=== PATIENT | male | born 1995 | race African-American/Black ===

== ENCOUNTER 2017-11-26 16:42 | Emergency (ER) | payer BC ==
--- NOTE | 2017-11-26 17:21 | PDOC ---
Rapid Medical Evaluation Time Seen by Provider: 11/26/17 17:18 Medical Evaluation: Allergies Allergy/AdvReac Type Severity Reaction Status Date / Time No Known Allergies Allergy Verified 08/08/15 12:12 11/26/17 17:19 I have performed a brief in-person evaluation of this patient. The patient presents with a chief complaint of: headache and fever x 4 days. States pain on top of head and to the left side. Took ibuprofen 1 tab this am Denies nausea, blurred vision dizziness. Pertinent physical exam findings are: NAD HEENT: PERRLA neuro: no photophobia, moving all limbs, full strength in all 4 I have ordered the following: analgesia The patient will proceed to the ED for further evaluation.
[2017-11-26 17:25] VITALS: BMI 42.5
[2017-11-26] MEDS ORDERED: ACETAMINOPHEN 325 MG TABLET (FP) PO ONE (17:26)
[2017-11-26] MEDS ORDERED: ACETAMINOPHEN 325 MG TABLET (FP) ONE (17:52)
--- NOTE | 2017-11-26 18:10 | PDOC ---
History of Present Illness - General Chief Complaint: Headache Stated Complaint: HEADACHES Time Seen by Provider: 11/26/17 17:18 - History of Present Illness Initial Comments: 22 year old male with history of headaches presenting with headache for the past 2.5 days refractory to oral medications. States that he has had a bilateral band like headache that occasionally goes to to his left temporal region. His headaches typically resolve with ibuprofen but this has been slightly more intense without resolution. Denies any temporal relation, or worse when bending over. He does admit to some slight pain when moving his eyes to the left where he feels the headache in the temporal region of his head. Denies nausea, vomiting, diarrhea, constipation, or other symptoms. 11/26/17 18:25 Past History - Past Medical History Allergies/Adverse Reactions: Allergies Allergy/AdvReac Type Severity Reaction Status Date / Time No Known Allergies Allergy Verified 11/26/17 17:21 Home Medications: Ambulatory Orders NK [No Known Home Medication] 08/08/15 COPD: No - Suicide/Smoking/Psychosocial Hx Smoking History: Never smoked Hx Alcohol Use: No Drug/Substance Use Hx: No Review of Systems - Review of Systems Constitutional: No: Chills, Diaphoresis, Fever HEENTM: No: Blurred Vision, Tearing Respiratory: No: Cough, Orthopnea, Shortness of Breath Cardiac (ROS): No: Chest Pain, Edema, Lightheadedness ABD/GI: No: Diarrhea, Nausea, Poor Appetite : No: Burning, Dysuria, Discharge Musculoskeletal: No: Back Pain, Gout Integumentary: No: Bruising, Lesions, Lumps Neurological: Yes: Headache. No: Numbness, Paresthesia, Unsteady Gait, Ataxia, Dizziness Psychiatric: No: Depression Hematologic/Lymphatic: No: Blood Clots, Easy Bleeding *Physical Exam - Vital Signs Last Vital Signs Temp Pulse Resp BP Pulse Ox 99.3 F 96 H 16 166/99 99 11/26/17 17:21 11/26/17 17:21 11/26/17 17:21 11/26/17 17:21 11/26/17 17:21 - Physical Exam General Appearance: Yes: Nourished, Appropriately Dressed. No: Apparent Distress HEENT: positive: EOMI, QUAN, Normal ENT Inspection, Normal Voice Neck: positive: Trachea midline, Normal Thyroid, Supple. negative: Tender, Rigid Respiratory/Chest: positive: Lungs Clear, Normal Breath Sounds. negative: Chest Tender, Respiratory Distress, Accessory Muscle Use Cardiovascular: positive: Regular Rhythm, Regular Rate Gastrointestinal/Abdominal: positive: Normal Bowel Sounds, Flat, Soft. negative : Tender Musculoskeletal: positive: Normal Inspection. negative: Decreased Range of Motion, Muscle Spasm Extremity: positive: Normal Capillary Refill, Normal Inspection, Normal Range of Motion. 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 Patient would like to go home. This is likely an acute exacerbation of his typical headaches and not concerning for any ICH or ICM as his neuro exam is intact and there are no other concerning issues. 11/26/17 20:07 *DC/Admit/Observation/Transfer Diagnosis at time of Disposition: Headache Qualifiers: Headache type: unspecified Headache chronicity pattern: acute headache Intractability: not intractable Qualified Code(s): R51 - Headache - Discharge Dispostion Disposition: HOME Condition at time of disposition: Improved Decision to Admit order: No - Referrals Referrals: [facility] [place] [Provider Group] Benny West MD [Staff Physician] - - Patient Instructions Printed Discharge Instructions: DI for Headache Additional Instructions: Please drink plenty of water and please use Motrin for the pain at home along with Tylenol. Please follow up with the neurologist for better control of your headacehs as you seem to get them quite frequently. Please return to the ED if you have new or worsening symptoms. - Post Discharge Activity Forms/Work/School Notes: Back to Work
[2017-11-26] MEDS ORDERED: KETOROLAC TROMETHAMINE 30 MG/1 ML VIAL IM ONE (18:18)
[2017-11-26] MEDS ORDERED: METOCLOPRAMIDE HCL 10 MG TABLET (FP) PO ONE ×2 (18:18→18:25)
[2017-11-26] MEDS ORDERED: KETOROLAC TROMETHAMINE 30 MG/1 ML VIAL ONE (18:25)
--- NOTE | 2017-11-26 20:17 | PDOC ---
Attending Attestation - Resident Resident Name: Jackie Bustillo - ED Attending Attestation I have performed the following: I have examined & evaluated the patient, The case was reviewed & discussed with the resident, I agree w/resident's findings & plan - HPI HPI: 11/26/17 20:17 22 year old male with history of headaches presenting with headache x 2-3 days. no photophobia, vomiting, visual or hearing disturbances. has been taking nsaids with some relief. denies prodrome or syncope. - did admit to caffeine intake over the weekend. denies fever or chills. no uri or GI sx 11/26/17 20:23 - Physicial Exam PE: 11/26/17 20:18 NAD, well appearing, MMM, nl conjunctiva, anicteric; neck supple. lungs clear, RRR, abdomen soft nontender. RUSSELL x4, No peripheral edema. normal color for ethnicity, WWP. Alert, oriented to person time and place. CN II-XII grossly intact. Strength prox and distally 5/5 throughout. Sensation grossly intact to light touch. RUSSELL x4. No cerebellar signs, no dysmetria, bilateral finger to nose and heel to smith equal and symmetric. Speech clear. gait stable, no ataxia - Medical Decision Making 11/26/17 20:19 22-year-old male with history of headaches presenting with frontal headache 2- 3 days, no neurologic changes. Note prodrome, syncope, fevers or chills or neck pain. Vital signs stable, well-appearing. most likely migraine vs tension vs caffeine headache Given Toradol, reglan and tylenol with symptomatically relief. No focal neurologic findings or abnormalities. 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 Discharged in stable condition, primary doctor follow-up. Recheck blood pressure as an outpatient, discussed return precautions including worsening weakness, paresthesias, syncope, gait instability, visual or hearing changes. Headache modifying factors discussed, dietary changes, headache diary and [id number]-[id number] medication use discussed including proper dosing of NSAIDs and/or Tylenol every 6 hours as needed. Minimize potential triggers and stress. Patient verbalized understanding of impression and plan, agreeable. gait stable, ambulatory. 11/26/17 20:24
[2017-11-26 20:19] VITALS: BP 122/69; PULSE 79; TEMP 98.2
== END 2017-11-26 20:20 | disposition home or self-care (01) ==
LOC: JER 16:42
PROC: 3E0233Z Introduction of Anti-inflammatory into Muscle, Percutaneous Approach (ICD-10-PCS; principal; 2017-11-26)
DX: R51 Headache (principal)
CPT/HCPCS: 99282-25

== ENCOUNTER 2018-12-09 07:50 | Emergency (ER) | payer BC ==
[2018-12-09 07:58] VITALS: BP 141/77; PULSE 85; TEMP 98.2; BMI 52.1
--- NOTE | 2018-12-09 08:05 | PDOC ---
History of Present Illness - General Chief Complaint: Palpitations Stated Complaint: CHEST DISCOMFORT Time Seen by Provider: 12/09/18 08:04 History Source: Patient Exam Limitations: No Limitations - History of Present Illness Initial Comments: 23 year old male with no PMH presented to ED for palpitations since yesterday. Pt reported intermittently feeling a deep pressure with heartbeat, that will rapidly resolve, it improved in frequency this morning, but was still occurring , prompting pt to come to ED. Pt denied chest pain, shortness of breath, sore throat, runny nose, cough, headache, fever, lower extremity swelling, hormone use, hx DVT/PE, hx surgery <4 weeks, hx active malignancy. Pt reported he has not seen a PCP in >3 years. Past History - Past Medical History Allergies/Adverse Reactions: Allergies Allergy/AdvReac Type Severity Reaction Status Date / Time No Known Allergies Allergy Verified 12/09/18 07:53 Home Medications: Ambulatory Orders NK [No Known Home Medication] 08/08/15 COPD: No - Psycho Social/Smoking Cessation Hx Smoking History: Never smoked Have you smoked in the past 12 months: No Hx Alcohol Use: No Drug/Substance Use Hx: No *Physical Exam - Vital Signs Last Vital Signs Temp Pulse Resp BP Pulse Ox 98.2 F 85 18 141/77 98 12/09/18 07:53 12/09/18 07:53 12/09/18 07:53 12/09/18 07:53 12/09/18 07:53 - Physical Exam Comments: ROS General: denied fever, chills, generalized weakness. HEENT: denied sore throat, rhinorrhea, ear pain. Cardiovascular: admitted to palpitations. denied chest pain, syncope, diaphoresis. Respiratory: denied shortness of breath, cough, sputum production, hemoptysis. Gastrointestinal: denied abdominal pain, nausea, vomiting, diarrhea, constipation, blood in stool. Genitourinary: denied dysuria, increased urinary frequency, hematuria, urinary incontinence, flank pain. Back: denied back pain. Musculoskeletal: denied joint pain, muscle pain, joint swelling. Neurological: denied headache, dizziness, numbness, tingling, weakness. Integumentary: denied rash, laceration, abrasion. Hematologic/Lymphatic: denied bruising or bleeding. PE Constitutional: Well-nourished, Well-developed, appearing stated age. obese. HEENT: head is normocephalic, atraumatic. EOMI. PERRLA. Neck: supple. Full ROM. Cardiovascular: regular heart rhythm. no murmurs. no pericardial friction rub. Respiratory: clear to auscultation bilaterally. no crackles, rhonchi or wheezing. no stridor. Gastrointestinal: soft, nontender. normal bowel sounds. no rebound, guarding, masses. Extremities: peripheral pulses intact. no lower extremity edema. Neurological: CN 2-12 grossly intact. moves all four extremities. Psych: awake, alert, oriented x3. follows commands. answers questions appropriately. ED Treatment Course - LABORATORY CBC & Chemistry Diagram: 12/09/18 08:28 12/09/18 08:28 Medical Decision Making - Medical Decision Making 23 year old male with no PMH presented to ED for palpitations. Initial Vital Signs Temp Pulse Resp BP Pulse Ox 98.2 F 85 18 141/77 98 12/09/18 07:53 12/09/18 07:53 12/09/18 07:53 12/09/18 07:53 12/09/18 07:53 Afebrile. No tachycardia. No tachypnea. Mild hypertension. No hypoxia on room air. Labs ordered: CBC, CMP, troponin, TSH, Mag, Phos Imaging ordered: CXR Medications ordered: normal saline bolus 1000 cc once EKG performed at 0752: rate 71, regular rhythm, normal axis, normal intervals, no acute ST changes. -Flipped T in III/V2 seen on prior EKG 08/07/18 not seen 12/09/18 08:47 CXR report: Name: [facility] Phys: Ban Perry RESIDENT : 1995 Age: 23 Sex: M [facility] Acct: [id number] Loc: [address] Exam Date: 12/09/18 Status: REG [facility] [place] [id number] Unit Number: [id number] EXAM#: TYPE/EXAM: RESULT: [id number] RAD/CHEST PA LAT Chest tightness palpitations. Chest 2 views. Comparison study August 08, 2015. Shallow inspiration. No evidence of widening of the superior mediastinum. Prominent cardiac silhouette. Elevated right diaphragm. No evidence of vascular congestive changes, pulmonary infiltrates. No pneumothorax, or large pleural effusion is seen. No evidence of bulky hilar adenopathy. The visualized osseous structures appear intact. Impression. Shallow inspiration. No evidence of active pulmonary disease, pleural effusion, or pneumothorax. Prominent cardiac silhouette. Reported By: Sandro Henry MD 12/09/18 0844 12/09/18 09:23 CBC WBC 6.9 K/mm3 (4.0-10.0) 12/09/18 08:28 RBC 4.53 M/mm3 (4.00-5.60) 12/09/18 08:28 Hgb 13.2 GM/dL (11.7-16.9) 12/09/18 08:28 Hct 38.9 % (35.4-49) 12/09/18 08:28 MCV 85.8 fl (80-96) 12/09/18 08:28 MCH 29.1 pg (25.7-33.7) 12/09/18 08: MCHC 33.9 g/dl (32.0-35.9) 12/09/18 08:28 RDW 13.5 % (11.9-15.9) 12/09/18 08:28 Plt Count 249 K/MM3 (134-434) 12/09/18 08:28 MPV 9.1 fl (7.5-11.1) 12/09/18 08:28 Absolute Neuts (auto) 3.7 K/mm3 (1.5-8.0) 12/09/18 08:28 Neutrophils % 53.5 % (42.8-82.8) 12/09/18 08:28 Lymphocytes % 34.1 % (8-40) 12/09/18 08:28 Monocytes % 8.2 % (3.8-10.2) 12/09/18 08:28 Eosinophils % 3.7 % (0-4.5) 12/09/18 08:28 Basophils % 0.5 % (0-2.0) 12/09/18 08:28 Nucleated RBC % 0 % (0-0) 12/09/18 08:28 CMP Sodium 140 mmol/L (136-145) 12/09/18 08:28 Potassium 4.5 mmol/L (3.5-5.1) 12/09/18 08:28 Chloride 104 mmol/L (98-107) 12/09/18 08:28 Carbon Dioxide 32 mmol/L (21-32) 12/09/18 08:28 Anion Gap 4 MMOL/L (8-16) L 12/09/18 08:28 BUN 9.9 mg/dL (7-18) 12/09/18 08:28 Creatinine 0.7 mg/dL (0.55-1.3) 12/09/18 08:28 Est GFR (CKD-EPI)AfAm 152.02 12/09/18 08:28 Est GFR (CKD-EPI)NonAf 131.16 12/09/18 08:28 Random Glucose 101 mg/dL (74-106) 12/09/18 08:28 Calcium 9.1 mg/dL (8.5-10.1) 12/09/18 08:28 Phosphorus 3.2 mg/dL (2.5-4.9) 12/09/18 08:28 Magnesium 2.2 mg/dL (1.8-2.4) 12/09/18 08:28 Total Bilirubin 0.4 mg/dL (0.2-1) 12/09/18 08:28 AST 13 U/L (15-37) L 12/09/18 08:28 ALT 21 U/L (13-61) 12/09/18 08:28 Alkaline Phosphatase 85 U/L (45-117) 12/09/18 08:28 Troponin I < 0.02 ng/ml (0.00-0.05) 12/09/18 08:28 Total Protein 7.4 g/dl (6.4-8.2) 12/09/18 08:28 Albumin 3.6 g/dl (3.4-5.0) 12/09/18 08:28 TSH 1.05 uIU/ml (0.358-3.74) 12/09/18 08:28 No anemia. No electrolyte abnormalities. No ADAM. No transaminitis. Troponin undetectable. TSH wnl. Pt reassessed, reported no recurrence of palpitations while in ED. Pt eating food tray without difficulty. Ambulating well without assistance. Pt discharged. [facility] Discharge - Discharge Information Problems reviewed: Yes Clinical Impression/Diagnosis: Palpitations Condition: Stable Disposition: HOME - Admission No - Follow up/Referral Referrals: [facility] [place] [Provider Group] - Patient Discharge Instructions Patient Printed Discharge Instructions: DI for Palpitations Additional Instructions: Follow up with a primary care doctor within 3 days. Your care is not complete until you follow up. I have provided you with a referral to our clinic system, which takes all or no health insurance. Call [phone] to make an appointment. Return to the Emergency Department for chest pain, shortness of breath, vomiting , fever, lightheadedness, passing out, coughing up blood or any other new, worsening or concerning symptoms. - Post Discharge Activity Work/Back to School Note: Back to Work
[2018-12-09] MEDS ORDERED: SODIUM CHLORIDE 1,000 ML IV STA (08:14)
[2018-12-09 08:53] LABS: BASO % 0.5 % (0-2.0); EOS % 3.7 % (0-4.5); HEMATOCRIT 38.9 % (35.4-49); HEMOGLOBIN 13.2 GM/dL (11.7-16.9); LYMPH % 34.1 % (8-40); MCH 29.1 pg (25.7-33.7); MCHC 33.9 g/dl (32.0-35.9); MEAN CELL VOLUME 85.8 fl (80-96); MEAN PLT VOLUME 9.1 fl (7.5-11.1); MONO % 8.2 % (3.8-10.2); NEUT % 53.5 % (42.8-82.8); PLATELET COUNT 249 K/MM3 (134-434); RBC 4.53 M/mm3 (4.00-5.60); RDW 13.5 % (11.9-15.9); WHITE BLOOD COUNT 6.9 K/mm3 (4.0-10.0)
[2018-12-09 09:06] LABS: INR 1.13 (0.83-1.09); PROTHROMBIN TIME (PATIENT) 13.3 SEC (9.7-13.0)
[2018-12-09 09:08] LABS: ACTIVATED PTT 38.8 SECONDS (25.2-36.5)
[2018-12-09 09:21] LABS: ALBUMIN 3.6 g/dl (3.4-5.0); BILIRUBIN,TOTAL 0.4 mg/dL (0.2-1); BLOOD UREA NITROGEN 9.9 mg/dL (7-18); CALCIUM 9.1 mg/dL (8.5-10.1); CREATININE 0.7 mg/dL (0.55-1.3); MAGNESIUM 2.2 mg/dL (1.8-2.4); PHOSPHOROUS 3.2 mg/dL (2.5-4.9); POTASSIUM 4.5 mmol/L (3.5-5.1); TOT PROT 7.4 g/dl (6.4-8.2)
--- NOTE | 2018-12-09 10:16 | PDOC ---
Attending Attestation - Resident Resident Name: Ban Perry - ED Attending Attestation I have performed the following: I have examined & evaluated the patient, The case was reviewed & discussed with the resident, I agree w/resident's findings & plan - HPI HPI: 12/09/18 10:13 Healthy 23-year-old male with no sniffing past medical history presents for evaluation after having 3 fleeting episodes of palpitations yesterday and some chest discomfort this morning. Patient was in his usual state of normal health , which includes no exercise limitations and normal daily activity, yesterday had 3 separate episodes of asymptomatic single palpitation without any other symptoms, did not seek medical evaluation, this morning had a subjective chest discomfort without any other symptoms or palpitations, so he presents for evaluation. No related shortness of breath or dyspnea on exertion, no PE risk factors, no exercise limitations, no toxic habits, no pertinent family history. Currently asymptomatic and feeling well. No infectious symptoms. - Physicial Exam PE: 12/09/18 10:14 Vital signs normal Obese, seated comfortably in stretcher, speaking full sentences and smiling, eating breakfast No JVD Heart is regular without ectopic beats, no murmurs, lungs are clear No edema or calf tenderness - Medical Decision Making 12/09/18 10:15 Healthy 23-year-old male with no significant ACS or PE risk factors presents with possibly symptomatic palpitations x3 yesterday without persistent arrhythmia or palpitations, atypical chest pain this morning not consistent with ACS. Labs, EKG, chest x-ray all performed been within normal limits, including troponin Patient did not have any episodes here, feels well, ambulating comfortably Has PCP established, will offer clinic follow-up as well, recommend outpatient Holter and echo, understands return criteria. Heart Score/ECG Review #1 ECG reviewed & interpreted by me at: 07:52 General ECG Interpretation: Sinus Rhythm, Normal Rate (71), Normal Intervals ( qtc 445), No acute ischemic changes
--- NOTE | 2018-12-09 11:04 | EKG ---
Test Reason : Blood Pressure : / mmHG Vent. Rate : 071 BPM Atrial Rate : 071 BPM P-R Int : 168 ms QRS Dur : 100 ms QT Int : 410 ms P-R-T Axes : 062 060 029 degrees QTc Int : 445 ms NORMAL SINUS RHYTHM WITH SINUS ARRHYTHMIA NORMAL ECG WHEN COMPARED WITH ECG OF 08-AUG-2015 12:11, NO SIGNIFICANT CHANGE WAS FOUND Confirmed by Heriberto Camacho MD ([id number]) on 12/09/2018 11:04:12 AM Referred By: Confirmed By:Heriberto Camacho MD
== END 2018-12-09 09:58 | disposition home or self-care (01) ==
LOC: JER 07:50
PROC: 3E0337Z Introduction of Electrolytic and Water Balance Substance into Peripheral Vein, Percutaneous Approach (ICD-10-PCS; principal; 2018-12-09)
DX: R00.2 Palpitations (principal)
CPT/HCPCS: 36415; 71046-TC-FY; 80053; 83735; 84100; 84443; 84484; 85025; 85610; 85730; 93005; 93010; 99283-25; J7030

== ENCOUNTER 2019-08-09 01:34 | Emergency (ER) | payer BC ==
--- NOTE | 2019-08-09 01:59 | PDOC ---
Attending Attestation - Resident Resident Name: Jaquan Cole - ED Attending Attestation I have performed the following: I have examined & evaluated the patient, The case was reviewed & discussed with the resident, I agree w/resident's findings & plan
--- NOTE | 2019-08-09 02:07 | PDOC ---
History of Present Illness - General Chief Complaint: Palpitations Stated Complaint: CHEST TIGHTNESS Time Seen by Provider: 08/09/19 01:51 History Source: Patient Exam Limitations: No Limitations - History of Present Illness Initial Comments: 08/09/19 02:04 Patient is a 24M with history of HTN and obesity here today complaining of palpitations that onset 1 hour prior to arrival. Patient states that he felt an associated chest tightness. Denies shortness of breath. Patient states that he feels better now, but it hasn't completely resolved. Patient states he had one decaf coffee today, denies etoh and illicit drugs. Denies prior blood clots recent travel, and leg swelling. Patient states that he has had several episodes of this happen before. Patient has started taking amlodipine recently for bp control. Past History - Medical History Allergies/Adverse Reactions: Allergies Allergy/AdvReac Type Severity Reaction Status Date / Time No Known Allergies Allergy Verified 08/09/19 01:43 Home Medications: Ambulatory Orders NK [No Known Home Medication] 08/08/15 COPD: No HTN: Yes Hypercholesterolemia: Yes - Psycho-Social/Smoking History Smoking History: Never smoked Have you smoked in the past 12 months: No - Substance Abuse Hx (Audit-C & DAST Scrn) How often the patient has a drink containing alcohol: Never Score: In Men: 4 or > Positive; In Women: 3 or > Positive: 0 Screen Result (Pos requires Nsg. Audit-10AR): Negative Review of Systems - Review of Systems Able to Perform ROS?: Yes Comments:: 08/09/19 02:07 GENERAL/CONSTITUTIONAL: No fever or chills. No weakness. HEAD, EYES, EARS, NOSE AND THROAT: No change in vision. No sore throat. CARDIOVASCULAR: +chest pain no shortness of breath RESPIRATORY: No cough, wheezing, or hemoptysis. GASTROINTESTINAL: No nausea, vomiting, diarrhea or constipation. GENITOURINARY: No dysuria, frequency, or change in urination. MUSCULOSKELETAL: No joint or muscle swelling or pain. No neck or back pain. SKIN: No rash NEUROLOGIC: No headache, vertigo, loss of consciousness, or change in streng th/sensation. ENDOCRINE: No increased thirst. No abnormal weight change HEMATOLOGIC/LYMPHATIC: No anemia, easy bleeding, or history of blood clots. ALLERGIC/IMMUNOLOGIC: No hives or skin allergy. *Physical Exam - Vital Signs Last Vital Signs Temp Pulse Resp BP Pulse Ox 98.7 F 109 H 18 152/99 99 08/09/19 01:40 08/09/19 01:40 08/09/19 01:40 08/09/19 01:40 08/09/19 01:40 - Physical Exam 08/09/19 02:07 GENERAL: Awake, alert, and fully oriented, in no acute distress HEAD: No signs of trauma, normocephalic, atraumatic EYES: PERRLA, EOMI, sclera anicteric, conjunctiva clear ENT: Auricles normal inspection, hearing grossly normal, nares patent, oropharynx clear without exudates. Moist mucosa NECK: Normal ROM, supple, no lymphadenopathy, JVD, or masses LUNGS: No distress, speaks full sentences, clear to auscultation bilaterally HEART: Regular rate and rhythm, normal S1 and S2, no murmurs, rubs or gallops, peripheral pulses normal and equal bilaterally. ABDOMEN: Soft, nontender, normoactive bowel sounds. No guarding, no rebound. No masses EXTREMITIES: Normal inspection, Normal range of motion, no edema. No clubbing or cyanosis. NEUROLOGICAL: Cranial nerves II through XII grossly intact. Normal speech, normal gait, no focal sensorimotor deficits SKIN: Warm, Dry, normal turgor, no rashes or lesions noted. ED Treatment Course - LABORATORY CBC & Chemistry Diagram: 08/09/19 02:30 08/09/19 02:30 - RADIOLOGY Radiology Studies Ordered: Category Date Time Status CHEST X-RAY PORTABLE* [RAD] Stat Radiology 08/09/19 01:59 Ordered Medical Decision Making - Medical Decision Making 08/09/19 02:08 Patient is a 24M with history of htn here today with palpitations. Vitals notable for tachycardia to 109. HR regular in 90s on my exam. EKG shows NSR with rate of 100. No st elevations/depressions. Normal axis. Normal intervals. DDx includes, but is not limited to: metabolic derangement, arrhythmia, hyperthyroidism, less likely acs. Will evaluate with cbc, cmp, cxr, tsh, trop. Likely discharge with outpatient cardio follow up given multiple episodes and ED visits. 08/09/19 03:20 CBC, CMP normal Trop neg TSH normal CXR shows no acute pulmonary process. HR stable. BP 147/117. Will discharge home with cardiology follow up. Palpitations improved. Discharge - Discharge Information Problems reviewed: Yes Clinical Impression/Diagnosis: Palpitations Condition: Good Disposition: HOME - Admission No - Follow up/Referral Referrals: Khurram Masterson MD [Staff Physician] - - Patient Discharge Instructions Patient Printed Discharge Instructions: DI for Palpitations, DI for Ambulatory Cardiac Monitoring Additional Instructions: Please call the welding machine operator electroslag listed below on Saturday to follow up. Please return if you have any new worsening or concerning symptoms. - Post Discharge Activity
--- NOTE | 2019-08-09 02:07 | PDOC ---
Documentation entered by Salomon Louise SCRIBE, acting as scribe for Iram Rush MD. Iram Rush MD: This documentation has been prepared by the [employer], SCRIBE, under my direction and personally reviewed by me in its entirety. I confirm that the documentation accurately reflects all work, treatment, procedures, and medical decision making performed by me. Attending Attestation - Resident Resident Name: IsidorofeleciaJaquan - ED Attending Attestation I have performed the following: I have examined & evaluated the patient, The case was reviewed & discussed with the resident, I agree w/resident's findings & plan, Exceptions are as noted - HPI HPI: 08/09/19 01:59 The patient is a 24 year old male with a significant past medical history of HTN who presents to the ED with palpitations and chest tightness. Per patient and EMR, patient was evaluated with similar symptoms in the past without any pertinent findings. He denies any recent drug usage. Allergies: NKDA 08/09/19 02:16 Pt is obese - Physicial Exam PE: 08/09/19 02:17 Agree with resident exam - Medical Decision Making 08/09/19 05:47 Pt has normal CXR and normal EKG and normal TSH and labs and he has a normal exam. Pt will be asked to lose weight and to follow with cardiology for a holter monitoring Heart Score/ECG Review - ECG Intrepretation Rhythm: Regular Rhythm - [place]: Normal - P and MI Delta Wave(s) Present: No WPW: No - QRS Poor R Wave Progression: No Q Wave Present: No - ST and T Early Repolarization: No Non Specific ST-T Wave changes: No Flattened T Waves: No Prolonged Q-T Interval: No - ECG Impressions Normal ECG: Yes Non-specific ST Elevation: No Ischemic Changes: No Bradycardia: No Torsades wilian Pointes: No WPW: No Discharge - Discharge Information Problems reviewed: Yes Clinical Impression/Diagnosis: Palpitations Condition: Good Disposition: HOME - Follow up/Referral Referrals: Khurram Masterson MD [Staff Physician] - - Patient Discharge Instructions Patient Printed Discharge Instructions: DI for Ambulatory Cardiac Monitoring, DI for Palpitations Additional Instructions: Please call the deputy attorney general listed below on Saturday to follow up. Please return if you have any new worsening or concerning symptoms. - Post Discharge Activity
[2019-08-09 02:11] VITALS: BMI 51.3
[2019-08-09 02:44] LABS: BASO % 0.9 % (0-2.0); EOS % 3.9 % (0-4.5); HEMATOCRIT 41.9 % (35.4-49); HEMOGLOBIN 13.9 GM/dL (11.7-16.9); MCH 28.8 pg (25.7-33.7); MCHC 33.3 g/dl (32.0-35.9); MEAN CELL VOLUME 86.4 fl (80-96); MEAN PLT VOLUME 8.9 fl (7.5-11.1); MONO % 8.2 % (3.8-10.2); PLATELET COUNT 295 K/MM3 (134-434); RBC 4.85 M/mm3 (4.00-5.60); RDW 13.3 % (11.9-15.9); WHITE BLOOD COUNT 10.7 K/mm3 (4.0-10.0)
[2019-08-09 02:53] LABS: INR 1.04 (0.83-1.09); PROTHROMBIN TIME (PATIENT) 12.3 SEC (9.7-13.0)
[2019-08-09 02:56] LABS: ACTIVATED PTT 36.4 SECONDS (25.2-36.5)
[2019-08-09 03:07] LABS: ALBUMIN 3.8 g/dl (3.4-5.0); ALK PHOS 90 U/L (45-117); BILIRUBIN,TOTAL 0.2 mg/dL (0.2-1); BLOOD UREA NITROGEN 11.1 mg/dL (7-18); CALCIUM 9.3 mg/dL (8.5-10.1); CO2 27 mmol/L (21-32); CREATININE 0.7 mg/dL (0.55-1.3); GLUCOSE,RANDOM 113 mg/dL (74-106); MAGNESIUM 2.2 mg/dL (1.8-2.4); SGOT/AST 14 U/L (15-37); SGPT/ALT 34 U/L (13-61); SODIUM 139 mmol/L (136-145); TOT PROT 7.9 g/dl (6.4-8.2)
[2019-08-09 03:10] LABS: ANION GAP 7 MMOL/L (8-16); CHLORIDE 105 mmol/L (98-107)
[2019-08-09 04:17] VITALS: BP 147/117; PULSE 103; TEMP 98.1
--- NOTE | 2019-08-09 14:30 | EKG ---
Test Reason : Blood Pressure : / mmHG Vent. Rate : 095 BPM Atrial Rate : 095 BPM P-R Int : 160 ms QRS Dur : 088 ms QT Int : 358 ms P-R-T Axes : 064 033 020 degrees QTc Int : 449 ms NORMAL SINUS RHYTHM LEFT ATRIAL ENLARGEMENT BORDERLINE ECG WHEN COMPARED WITH ECG OF 09-DEC-2018 07:52, NO SIGNIFICANT CHANGE WAS FOUND Confirmed by MD EUGENE MOYSES ([id number]) on 08/09/2019 2:30:14 PM Referred By: Confirmed By:HARSHA EUGENE MD
--- NOTE | 2019-08-10 11:14 | EKG ---
Test Reason : Blood Pressure : / mmHG Vent. Rate : 100 BPM Atrial Rate : 100 BPM P-R Int : 152 ms QRS Dur : 094 ms QT Int : 338 ms P-R-T Axes : 067 071 017 degrees QTc Int : 436 ms NORMAL SINUS RHYTHM NORMAL ECG WHEN COMPARED WITH ECG OF 09-DEC-2018 07:52, NO SIGNIFICANT CHANGE WAS FOUND Confirmed by MAMADOU ALCALA MD ([id number]) on 08/10/2019 11:13:55 AM Referred By: Confirmed By:MAMADOU ALCALA MD
== END 2019-08-09 03:35 | disposition home or self-care (01) ==
LOC: JER 01:34
DX: R00.2 Palpitations (principal)
CPT/HCPCS: 36415; 71045-TC-FY; 80053; 82550; 83735; 84443; 84484; 85025; 85610; 85730; 93005; 93010; 99285-25